=== PATIENT | male | born 1955 | race African-American/Black ===

== ENCOUNTER 2021-07-11 13:35 | Emergency (ER) | payer OTHER ==
[2021-07-11 14:04] VITALS: BP 172/83; PULSE 81; TEMP 97; BMI 35.4
== END 2021-07-11 15:54 | disposition home or self-care (01) ==
LOC: JERFT 13:35
DX: M25.552 Pain in left hip (principal)
CPT/HCPCS: 72170-TC-FY; 73502-TC-LT-FY; 99284-25